=== PATIENT | male | born 1950 | race Caucasian/White ===

== ENCOUNTER 2017-04-30 09:25 | Emergency (ER) | payer MEDICARE ==
[2017-04-30 09:48] VITALS: BP 98/70
[2017-04-30] MEDS ORDERED: Acetaminophen/HYDROcodone 325-5 MG Tab PO ONE (10:22)
--- NOTE | 2017-04-30 10:27 | EDM.PDOC ---
ED HPI GENERAL MEDICAL PROBLEM - General Chief Complaint: General Stated Complaint: PAIN MANAGEMENT Time Seen by Provider: 04/30/17 09:56 Source of Information: Reports: Patient, Family, RN Notes Reviewed History Limitations: Reports: No Limitations - History of Present Illness INITIAL COMMENTS - FREE TEXT/NARRATIVE: 67-year-old gentleman presents emergency department today requesting hospice consult and pain control, he has a known history of cerebrovascular accident with some cerebellar ataxia as well as extensive alcohol abuse and dependence and tobacco abuse and dependence. He does not have a primary care physician complains of shortness of breath yellow colored skin difficulty ambulating increasing abdominal pain and distention Abdomen Pain Score (Numeric/FACES): 6 - Related Data Allergies Allergy/AdvReac Type Severity Reaction Status Date / Time No Known Allergies Allergy Verified 04/30/17 09:45 Home Meds: Home Meds Aspirin 81 mg PO DAILY 04/30/17 [History] Fish Oil/[place]-3 Fatty Acids [Fish Oil 1,000 MG] 1,000 mg PO DAILY 04/30/17 [ History] Past Medical History Musculoskeletal History: Reports: Fracture Neurological History: Reports: CVA, TIA Other Neuro History: Cerebellar ataxia - Past Surgical History Other Musculoskeletal Surgeries/Procedures:: broke left wrist Social & Family History - Tobacco Use Smoking Status *Q: Current Every Day Smoker Years of Tobacco use: 55 Packs/Tins Daily: 1 - Caffeine Use Caffeine Use: Reports: None - Recreational Drug Use Recreational Drug Use: No ED ROS GENERAL - Review of Systems Review Of Systems: See Below Constitutional: Reports: Weakness, Fatigue HEENT: Reports: No Symptoms Respiratory: Reports: Shortness of Breath Cardiovascular: Reports: No Symptoms GI/Abdominal: Reports: Abdominal Pain, Distension : Reports: Hematuria Musculoskeletal: Reports: No Symptoms Skin: Reports: Jaundice Neurological: Reports: Difficulty Walking ED EXAM, GENERAL - Physical Exam Exam: See Below Free Text/Narrative:: General: Male, not in any distress, jaundiced in color, alert and oriented x3 HEENT: head is atraumatic normocephalic, eyes pupils equal round reactive to light, sclera yellow no conjunctivitis appreciated. Ears blocked by cerumen bilaterally. Nose no septal deviation, nares are clear, no blood present. Mouth mucosa is dry and pink no erythema or exudate noted in soft palate, tongue is midline uvula is midline, dentition is poor. Neck: Supple no thyromegaly no tracheal deviation. Nodes: Cervical nodes subclavicular nodes nontender no palpable lymphadenopathy noted. Lungs: Breath sounds are distant crackles and rhonchi mid to lower lung [place] bilaterally CV: Regular rate and rhythm S1 and S2 appreciated no murmurs rubs or gallops noted. Abdomen: Soft, generalized tenderness to palpation, no palpable masses or organomegaly appreciated, marked distention distention positive for guarding bowel sounds are absent. Neuro: Cranial nerves II through XII grossly intact Skin: Warm and dry, intact Extremities: No lower extremity edema appreciated, Course - Vital Signs Last Recorded V/S: Last Vital Signs Temp 98 F 04/30/17 09:48 Pulse 71 04/30/17 09:48 Resp 18 04/30/17 09:48 BP 98/70 04/30/17 09:48 Pulse Ox 90 L 04/30/17 09:48 - Orders/Labs/Meds Labs: Laboratory Tests 04/30/17 04/30/17 04/30/17 Range/Units 10:30 10:30 10:30 WBC 12.5 H (4.5-11.0) K/uL RBC 4.39 (4.30-5.90) M/uL Hgb 14.8 (12.0-15.0) g/dL Hct 43.3 (40.0-54.0) % MCV 99 H (80-98) fL MCH 34 H (27-31) pg MCHC 34 (32-36) % Plt Count 217 (150-400) K/uL Add Manual Diff Yes Neutrophils % (Manual) 53 (36-66) % Band Neutrophils % 10 (5-11) % Lymphocytes % (Manual) 17 L (24-44) % Monocytes % (Manual) 13 H (2-6) % Eosinophils % (Manual) 1 L (2-4) % Blast Cells % 1 % Nucleated RBCs 1 PT (9.5-12.0) sec INR (0.80-1.20) Sodium 135 L (140-148) mmol/L Potassium 4.2 (3.6-5.2) mmol/L Chloride 95 L (100-108) mmol/L Carbon Dioxide 31 (21-32) mmol/L Anion Gap 13.2 (5.0-14.0) mmol/L BUN 19 H (7-18) mg/dL Creatinine 0.8 (0.8-1.3) mg/dL Est Cr Clr Drug Dosing 85.05 mL/min Estimated GFR (MDRD) > 60 (>60) Glucose 91 (74-106) mg/dL Lactic Acid 3.4 H (0.4-2.0) mmol/L Calcium 10.2 H (8.5-10.1) mg/dL Phosphorus 2.6 (2.5-4.9) mg/dL Magnesium 1.9 (1.8-2.4) mg/dL Total Bilirubin 11.8 H (0.2-1.0) mg/dL AST 837 H (15-37) U/L ALT 163 H (12-78) U/L Alkaline Phosphatase 494 H (46-116) U/L NT-Pro-B Natriuret Pep (5-125) pg/mL Total Protein 6.5 (6.4-8.2) g/dL Albumin 2.1 L (3.4-5.0) g/dL Globulin 4.4 H (2.3-3.5) g/dL Albumin/Globulin Ratio 0.5 L (1.2-2.2) 04/30/17 04/30/17 Range/Units 10:30 10:30 WBC (4.5-11.0) K/uL RBC (4.30-5.90) M/uL Hgb (12.0-15.0) g/dL Hct (40.0-54.0) % MCV (80-98) fL MCH (27-31) pg MCHC (32-36) % Plt Count (150-400) K/uL Add Manual Diff Neutrophils % (Manual) (36-66) % Band Neutrophils % (5-11) % Lymphocytes % (Manual) (24-44) % Monocytes % (Manual) (2-6) % Eosinophils % (Manual) (2-4) % Blast Cells % % Nucleated RBCs PT 12.2 H (9.5-12.0) sec INR 1.13 (0.80-1.20) Sodium (140-148) mmol/L Potassium (3.6-5.2) mmol/L Chloride (100-108) mmol/L Carbon Dioxide (21-32) mmol/L Anion Gap (5.0-14.0) mmol/L BUN (7-18) mg/dL Creatinine (0.8-1.3) mg/dL Est Cr Clr Drug Dosing mL/min Estimated GFR (MDRD) (>60) Glucose (74-106) mg/dL Lactic Acid (0.4-2.0) mmol/L Calcium (8.5-10.1) mg/dL Phosphorus (2.5-4.9) mg/dL Magnesium (1.8-2.4) mg/dL Total Bilirubin (0.2-1.0) mg/dL AST (15-37) U/L ALT (12-78) U/L Alkaline Phosphatase (46-116) U/L NT-Pro-B Natriuret Pep 863 H (5-125) pg/mL Total Protein (6.4-8.2) g/dL Albumin (3.4-5.0) g/dL Globulin (2.3-3.5) g/dL Albumin/Globulin Ratio (1.2-2.2) Meds: Medications Discontinued Medications Generic Name Dose Route Start Last Admin Trade Name Freq PRN Reason Stop Dose Admin Hydrocodone Bitart/Acetaminophen 1 tab 04/30/17 10:22 04/30/17 10:26 [place] 325-5 Mg PO 04/30/17 10:23 1 tab ONETIME ONE Administration Departure - Departure Time of Disposition: 11:55 Disposition: Home, Self-Care 01 Condition: Poor Clinical Impression: Jaundice, Ascites due to alcoholic hepatitis Alcoholic hepatitis Qualifiers: Ascites presence: with ascites Qualified Code(s): K70.11 - Alcoholic hepatitis with ascites - Discharge Information Referrals: PCP,None [Primary Care Provider] - Forms: ED Department Discharge Additional Instructions: Please contact the emergency department within a couple days if you do not receive a phone call from hospice, use morphine as needed for pain control - Assessment/Plan Plan: Assessment Acuity = acute Site and laterality = alcoholic hepatitis Etiology = secondary to alcohol abuse Manifestations = ascites, jaundice Location of injury = Home Lab values = WBC elevated 12.5 consistent with leukocytosis INR normal at 1.13 sodium low at 135 consistent hyponatremia, lactic acid elevated at 3.4 consistent lactic acidosis total bilirubin elevated at 11.8 consistent with hyperbilirubinemia AST elevated at 837 ALTs elevated 163 consistent elevated liver enzymes alkaline phosphatase elevated at 494 BNP elevated at 863 consistent with fluid overload, albumin low at 2.1 consistent hypoalbuminemia Plan I did review lab work with them also set up a hospice consult provided morphine sulfate 10 mg 1 tablet by mouth every 4 hours when necessary total #30 Patient was in agreement with the plan all questions were answered, they were instructed to return to the emergency department or call for worsening symptoms. This note was dictated using [facility] voice recognition software please call with any questions.
== END 2017-04-30 12:07 | disposition home or self-care (01) ==
LOC: JP.ED 09:25
DX: K70.11 Alcoholic hepatitis with ascites (principal); F10.20 Alcohol dependence, uncomplicated; F17.210 Nicotine dependence, cigarettes, uncomplicated; Z86.73 Personal history of transient ischemic attack (TIA), and cerebral infarction without residual deficits; Z79.82 Long term (current) use of aspirin; Z79.899 Other long term (current) drug therapy
CPT/HCPCS: 36415; 80053; 83605; 83735; 83880; 84100; 85025; 85610; 99284; A9270